=== PATIENT | female | born 1980 | race Caucasian/White ===

== ENCOUNTER 2020-11-15 12:51 | Emergency (ER) | payer BC, SELFPAY ==
--- NOTE | ~2020-11-15 | XR_ITS ---
EXAMINATION: XR chest 2V EXAM DATE: 11/15/2020 13:16 INDICATION: Chest tightness and dizziness. TECHNIQUE: Frontal and lateral projections of the chest obtained and reviewed. Comparison is made to prior examination from 12/25/2007. FINDINGS: Moderate hyperinflation. The lungs are clear. There are no pleural effusions. The cardio mediastinal silhouette is within normal limits. There is no pneumothorax suspected. The bones and s oft tissues are unremarkable. IMPRESSION: 1. No acute cardiopulmonary findings. 2. Hyperinflation. Reviewed, dictated and finalized at location A.
--- NOTE | 2020-11-15 12:55 | ECG_ITS ---
Measurements Intervals [place] Rate: 75 P: 62 FL: 150 QRS: 100 QRSD: 82 T: 59 QT: 372 QTc: 415 Interpretive Statements SINUS RHYTHM RIGHT AXIS DEVIATION BORDERLINE ECG Electronically Signed On 11-15-2020 13:11:12 CDT by Smith Hernandez D.O.
[2020-11-15 13:04] VITALS: BP 118/62; PULSE 74; RESP 16; TEMP 37.2; O2SAT 100
[2020-11-15 13:41] LABS: Basophils Absolute Auto 0.1 K/mm3 (0.0-0.1); Basophils Percent Auto 0.5 % (0.2-1.2); Eosinophils Absolute Auto 0.1 K/mm3 (0-0.3); Eosinophils Percent Auto 0.8 % (0-4.4); Hematocrit 43.2 % (37.0-47.0); Hemoglobin 14.2 g/dL (12.0-15.0); Immature Granulocyte Absolute 0.02 K/mm3 (0.00-0.031); Immature Granulocyte Percent A 0.2 % (0-0.5); Lymphocytes Absolute Auto 2.28 K/mm3 (0.9-3.2); Lymphocytes Percent Auto 24.2 % (18.3-44.2); Mean Corpuscular HGB Conc 32.9 g/dl (32-36); Mean Corpuscular Hemoglobin 29.6 pg (26-34); Mean Corpuscular Volume 90.2 fl (80-100); Monocytes Absolute Auto 0.6 K/mm3 (0.1-0.6); Monocytes Percent Auto 6.6 % (2.6-8.5); Neutrophils Absolute Auto 6.4 K/mm3 (1.3-6.7); Neutrophils Percent Auto 67.7 % (45.5-73.1); Platelet Count Result 244 k/mm3 (150-375); Red Blood Count 4.79 M/mm3 (4.2-5.4); Red Cell Distribution Width 12.3 % (11.5-14.5); White Blood Count 9.4 K/mm3 (4.5-10.0)
[2020-11-15 13:53] LABS: Anion Gap 12 mmol/L (8-16); Blood Urea Nitrogen 11 mg/dL (7-17); Calcium 9.5 mg/dL (8.4-10.2); Carbon Dioxide 26 mmol/L (22-30); Chloride 103 mmol/L (98-107); Estimated CRCL calculation 103 ml/min; Estimated Glomerular Filt Rate > 60; Glucose 119 mg/dL (65-110); Potassium 3.2 mmol/L (3.4-5.0); Sodium 141 mmol/L (137-145)
[2020-11-15 14:04] LABS: Troponin I < 0.012 ng/mL (0.000-0.034)
[2020-11-15 15:25] VITALS: BP 109/62; PULSE 67; O2SAT 100
--- NOTE | 2020-11-15 15:33 | ED.CHESTPAIN ---
HPI - Chest Pain General Chief Complaint: Chest Pain Stated Complaint: Dizziness,Chest Pressure Time Seen by Provider: 11/15/20 15:27 Source: patient Mode of arrival: ambulatory Limitations: no limitations History of Present Illness HPI narrative: The patient is a 40 yo female with a history of anxiety, presenting with chest pain, dizziness, and dyspnea that occurred three hours prior to arrival. The dyspnea and chest pain have resolved at the time of assessment. Dizziness is worsened with standing; patient was taking phone calls at work and had not eaten or had much to drink when the symptoms began. Patient endorses significant stress during the episode. Patient's symptoms have improved since being here. Pt reports being diagnosed with COVID in 2020. She did not require hospitalization. No history of heart disease or family history of SCD. No recent long car or air travel. No calf swelling or leg pain. Pt endorses anxiety at time of assessment as well. Related Data Allergies Allergy/AdvReac Type Severity Reaction Status Date / Time No Known Allergies Allergy Verified 11/15/20 15:53 Review of Systems Review of Systems: CONSTITUTIONAL: Denies fever, chills, or sweats. EYES: Denies visual changes, redness, or discharge. ENT: Denies rhinorrhea, congestion, sore throat, or otalgia. CARDIOVASCULAR: Denies current chest pain, palpitations, or edema. RESPIRATORY: Denies cough or dyspnea. GASTROINTESTINAL: Denies abdominal pain, nausea, vomiting, or diarrhea. GENITOURINARY: Denies dysuria or hematuria. SKIN: Denies rash or itching. MUSCULOSKELETAL: Denies back pain, joint pain, or myalgia. NEUROLOGIC: Denies headache, numbness, or weakness. Reports dizziness, resolved currently. Psych: Pt reports anxiety [facility] Family History Family History (Updated 07/22/17 @ 16:39 by DOCTOR UNKNOWN) Father Family history of hypercholesterolemia Hypertension Family history of cardiovascular disease Grandparent Family history of malignant neoplasm of breast Mother Family history of malignant neoplasm of breast in first degree relative Social History Social History Smoking status: Never smoker Second hand tobacco smoke exposure: No Alcohol intake: never Exam Narrative: GENERAL: Awake, alert, conversant, anxious HEAD: Normocephalic, atraumatic. EYES: PERRLA and EOMI. ENT: Nares clear, no rhinorrhea or epistaxis. Mucous membranes moist. NECK: Supple. CHEST: No respiratory distress, breathing even and non labored HEART: Regular rate, sinus rhythm ABDOMEN:Non distended, non tender EXTREMITIES: Normal range of motion. No edema. SKIN: Warm, dry, no rash. NEURO:No focal deficits. Alert and oriented x3 Course Vital Signs Vital signs: Vital Signs Temperature 37.2 C 11/15/20 13:04 Pulse Rate 74 11/15/20 13:04 Respiratory Rate 16 11/15/20 13:04 Blood Pressure 118/62 11/15/20 13:04 Pulse Oximetry 100 11/15/20 13:04 Temperature 37.2 C 11/15/20 13:04 Pulse Rate 67 11/15/20 15:25 Respiratory Rate 16 11/15/20 13:04 Blood Pressure 109/62 11/15/20 15:25 Pulse Oximetry 100 11/15/20 15:25 MDM - Chest Pain MDM Narrative Medical decision making narrative: Patient presented for episode of chest pain, dizziness which have resolved at the time of assessment. Patient's EKG and labs are without significant high risk changes. Cardiac risk factors reviewed. Patient is felt low risk for ACS and reasonable for further risk stratification testing as an outpatient. Pain was not sudden or maximal or onset without tearing or ripping quality. No other signs or symptoms to suggest aortic dissection. A low risk well's criteria is noted, PE is felt to be unlikely. PERC criteria is negative. No tachycardia, tachypnea. No pneumonia seen on evaluation today. No recurrent symptoms in the ER. Patient is felt to be a reasonable candidate for continued evaluation a
[2020-11-15] MEDS: ASPIRIN 81 MG CHEWABLE TABLET 324 MG PO (16:27)
[2020-11-15 16:31] LABS: Troponin I < 0.012 ng/mL (0.000-0.034)
[2020-11-15] MEDS: POTASSIUM CHLORIDE 20 MEQ TABLET 40 MEQ PO (17:58)
[2020-11-15 18:07] VITALS: BP 123/77; PULSE 67; RESP 17; O2SAT 100
== END 2020-11-15 18:01 | disposition home or self-care (01) ==
PROVIDERS: Emergency Provider Emergency Medicine; PCP Family Medicine
DX: R07.89 Other chest pain (principal); Z20.822 Contact with and (suspected) exposure to COVID-19; R94.31 Abnormal electrocardiogram [ECG] [EKG]; Z86.16 Personal history of COVID-19
CPT/HCPCS: 36415; 71046; 80048; 81025; 84484; 85025; 85610; 85730; 93005; 99284; A9270

== ENCOUNTER 2023-07-10 08:00 | Outpatient (RCR) | payer OTHER, SELFPAY ==
--- NOTE | 2023-07-05 10:30 | OPREHPOC ---
Outpatient Therapy Plan of Care This is a Multidisciplinary Plan of Care that may contain components documented by all disciplines (PT, OT, and ST.) PT Problem 1 PT Problem #1 Knowledge Deficit PT Goal 1 Goal *indep with HEP Target Visit 8 PT Problem 2 PT Problem #2 Pain PT Goal 1 Goal 1* pt report pain R knee at worst of 4/10 2* pt report walking tolerance of 30 minutes 3* LE functional scale rating of 40% limitation in activity level Target Visit 8 PT Problem 3 PT Problem #3 Impaired Flexibility PT Goal 1 Goal increase flexibility of R hip and knee, to improve R/L balance of LE's: 1* supine hamstring length with SLR 55' 2* anterior hip-quad with prone knee flexion 135' 3* supine piriformis/ITB stretch without report of pulling Target Visit 8 PT Problem 4 PT Problem #4 Impaired Strength PT Goal 1 Goal increase strength of R hip and knee, to improve muscle balance R/L and mobility 1* supine SLR x 20 reps 2* side lying hip abduction x 20 reps 3* 2 minute walking test distance of 425' Target Visit 8
--- NOTE | 2023-07-05 10:30 | PTOPEVAL1 ---
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; job involves walking and computer work; do not have to lift or move pts; do not do any fitness activities; Reported Pain Level Pain Score Self Report Additional Pain Score Comments pain range in the past few days: 5-7/10; uncomfortable, tight; under patella, posterior knee, medial and lateral patella; increase pain: stairs, walk on incline; decrease pain: sit/rest, ice, meloxicam--new script, not started yet; with sleeping- do not awaken due to knee pain; with walking- more uncomfortable after ~ 15 min have velcro knee brace- use with walking and at work; ALSO have pain medial L knee; Assessment PT Clinical Summary Vangie has the diagnosis of R knee pain, but reports both knees hurt, R more than L. Onset with walking at work. LE functional scale, self rating of 60% limitation in activity level. Pain increases with walking and stairs. She does not do any fitness exercises. With the evaluation: R knee active ROM is WNL, with pain at end range of flexion; 2 minute walking test distance is 340' with limp on R LE; single leg standing--2 seconds tolerance; tightness of hamstring & anterior - hip quad, with weakness of quad and hip abduction muscles. Tenderness and pain over R distal ITB. Skilled PT services are indicated for treatment of patella-femoral syndrome
--- NOTE | 2023-07-16 07:21 | PCPTNOTE ---
called to cancel due to car trouble.
--- NOTE | 2023-07-18 12:55 | PCPTNOTE ---
Pt canceled today stating she can't make it
--- NOTE | 2023-07-22 12:50 | PCPTNOTE ---
Pt cancelled today and all remaining visits due to insurance not paying for visits.
--- NOTE | 2023-07-25 10:37 | PTOPDC ---
Assessment and note entered by Jovanna Sainz, PT Discharge Report Assessment Status Discharge - Pt Not Present Diagnosis pain in R knee Onset June 20, 2023 Subjective Information pt was not seen this date. Assessment PT Clinical Summary Vangie has received 2 PT appointments. She called and canceled remaining appointments due to insurance issues. Discharge PT per pt request. Goals were not assessed. Plan of Care PT Services Indicated No
== END 2023-07-25 11:31 | disposition home or self-care (01) ==
LOC: ANHPT 08:00
PROVIDERS: PCP Family Medicine; Visit Provider Family Medicine
DX: M25.561 Pain in right knee (principal)
CPT/HCPCS: 97014; 97110; 97140; 97161; 97530; G0283